=== PATIENT | female | born 1955 | race Caucasian/White ===

== ENCOUNTER 2017-10-28 12:44 | Emergency (ER) | payer OTHER ==
[2017-10-28 17:06] LABS: ADD MAN DIFF? NO
[2017-10-28] MEDS: morphine 4 MG/ML VIAL IV ×2 (17:06→18:19)
[2017-10-28 17:08] LABS: WHITE BLOOD COUNT 8.4 10^3/ul (4.8-10.8)
[2017-10-28 17:08] LABS: BASOPHIL # 0.1 10^3/ul (0.0-0.1); BASOPHILS % 0.6 % (0.0-2.0); EOSINOPHILS % 0.2 % (0.0-7.0); HEMATOCRIT 38.6 % (37.0-47.0); HEMOGLOBIN 13.5 g/dl (12.0-16.0); LYMPHOCYTES # 1.8 10^3/ul (0.8-2.9); LYMPHOCYTES % 21.6 % (15.0-51.0); MEAN CORPUSCULAR VOLUME 97.2 fl (82.0-101.0); MEAN PLATELET VOLUME 12.2 fl (7.4-10.4); MONOCYTE # 0.8 10^3/ul (0.3-0.9); MONOCYTES % 9.5 % (0.0-11.0); NEUTROPHIL # 5.7 10^3/ul (1.6-7.5); NEUTROPHILS % 67.9 % (39.0-77.0); PLATELET COUNT 111 10^3/UL (140-415); RED BLOOD COUNT 3.97 10^6/ul (4.20-5.40); RED CELL DISTRIBUTION WIDTH 17.2 % (11.5-14.5)
[2017-10-28 17:27] LABS: ALBUMIN/GLOBULIN RATIO 0.65; ANION GAP 15 (8-16)
[2017-10-28 17:31] LABS: ALANINE AMINOTRANSFERASE 49 IU/L (13-69); ALBUMIN 3.4 g/dl (3.3-4.9); ALKALINE PHOSPHATASE 291 IU/L (42-121); ASPARTATE AMINO TRANSFERASE 181 IU/L (15-46); BILIRUBIN,INDIRECT 2.4 mg/dl (0-1.1); BILIRUBIN,TOTAL 2.7 mg/dl (0.2-1.3); BLOOD UREA NITROGEN 7 mg/dl (7-20); CALCIUM 9.7 mg/dl (8.4-10.2); CARBON DIOXIDE 29 mmol/L (21-31); CHLORIDE 100 mmol/L (97-110); CREATININE 0.81 mg/dl (0.44-1.00); GLUCOSE 110 mg/dl (70-220); LIPASE 86 U/L (23-300); POTASSIUM 3.9 mmol/L (3.5-5.1); SODIUM 140 mmol/L (135-144); TOTAL PROTEIN 8.6 g/dl (6.1-8.1)
[2017-10-28 18:01] LABS: ADD UMIC YES; UR ASCORBIC ACID NEGATIVE (NEGATIVE); UR BACTERIA MODERATE /HPF (NONE SEEN); UR BILIRUBIN (Dip) 2+ mg/dL (NEGATIVE); UR BLOOD (Dip) NEGATIVE (NEGATIVE); UR CLARITY SLIGHTLY CLOUDY (CLEAR); UR COLOR AMBER (YELLOW); UR GLUCOSE (Dip) 1+ mg/dL (NEGATIVE); UR HYALINE CAST FEW /HPF (NONE SEEN); UR KETONES (Dip) TRACE mg/dL (NEGATIVE); UR LEUKOCYTE ESTERASE (Dip) TRACE Leu/ul (NEGATIVE); UR MUCUS MANY /HPF (NONE SEEN); UR NITRITE (Dip) POSITIVE (NEGATIVE); UR RBC 3 /HPF (0-5); UR SPECIFIC GRAVITY (Dip) 1.029 (1.003-1.030); UR SQUAMOUS EPITHELIAL CELL MANY /HPF (FEW); UR TOTAL PROTEIN (Dip) 2+ mg/dl (NEGATIVE); UR UROBILINOGEN (Dip) 2+ mg/dL (NEGATIVE); UR WBC 16 /HPF (0-5)
[2017-10-28 18:42] LABS: PROTIME 17.4 Sec (11.9-14.9); PT RATIO 1.4
[2017-10-28] MEDS: LIDOCAINE 1%/EPI 30 ML INJ INJ (18:51)
[2017-10-28] MEDS: HYDROmorphONE 0.5 MG/0.5 ML SYG IV (19:27)
[2017-10-28] MEDS: CEFTRIAXONE 1 GM/50 ML (PMX) 50 ML IVPB (19:27)
[2017-10-28 20:32] LABS: FLUID LD 119 U/L; FLUID TOTAL PROTEIN < 2.0 g/dl; FLUID TYPE FLUID
[2017-10-28 20:47] LABS: FLD MN% 78.9 %; FLD PMN% 21.1 %; FLD RBC 0 /uL; FLD WBC 128 /cmm
[2017-10-28 21:07] LABS: FLD TYPE ASCITES
[2017-10-28 21:08] LABS: FLD CLARITY CLEAR; FLD COLOR YELLOW
== END 2017-10-28 22:28 | disposition home or self-care (01) ==
LOC: FTE 12:44
DX: K70.31 Alcoholic cirrhosis of liver with ascites (principal); M25.461 Effusion, right knee
CPT/HCPCS: 71046; 74176; 76705; 80053; 81001; 83615; 83690; 84157; 85025; 85610; 85730; 87070; 87086; 89051; 96374; 96375; 96376; 99285-25

== ENCOUNTER 2017-10-30 09:47 | Emergency (ER) | payer OTHER ==
[2017-10-30 11:48] LABS: WHITE BLOOD COUNT 6.4 10^3/ul (4.8-10.8)
[2017-10-30 11:48] LABS: ABNORMAL IP MESSAGE 1; HEMATOCRIT 35.2 % (37.0-47.0); HEMOGLOBIN 12.5 g/dl (12.0-16.0); MEAN CORPUSCULAR HEMOGLOBIN 34.5 pg (29.0-33.0); MEAN CORPUSCULAR HGB CONC 35.5 g/dl (32.0-37.0); MEAN CORPUSCULAR VOLUME 97.2 fl (82.0-101.0); MEAN PLATELET VOLUME 12.9 fl (7.4-10.4); PLATELET COUNT 88 10^3/UL (140-415); RED BLOOD COUNT 3.62 10^6/ul (4.20-5.40); RED CELL DISTRIBUTION WIDTH 17.1 % (11.5-14.5)
[2017-10-30 12:00] LABS: ADD MAN DIFF? YES; POSITIVE DIFF @See below
[2017-10-30 12:05] LABS: INR 1.33; PROTIME 16.7 Sec (11.9-14.9); PT RATIO 1.3
[2017-10-30 12:09] LABS: ALANINE AMINOTRANSFERASE 43 IU/L (13-69); ALBUMIN 2.9 g/dl (3.3-4.9); ALBUMIN/GLOBULIN RATIO 0.65; ALKALINE PHOSPHATASE 233 IU/L (42-121); ANION GAP 17 (8-16); ASPARTATE AMINO TRANSFERASE 147 IU/L (15-46); BILIRUBIN,INDIRECT 1.6 mg/dl (0-1.1); BILIRUBIN,TOTAL 1.6 mg/dl (0.2-1.3); BLOOD UREA NITROGEN 5 mg/dl (7-20); CALCIUM 9.2 mg/dl (8.4-10.2); CARBON DIOXIDE 27 mmol/L (21-31); CHLORIDE 101 mmol/L (97-110); GLUCOSE 107 mg/dl (70-220); LIPASE 132 U/L (23-300); POTASSIUM 3.9 mmol/L (3.5-5.1); SODIUM 141 mmol/L (135-144); TOTAL PROTEIN 7.3 g/dl (6.1-8.1)
[2017-10-30 12:24] LABS: BAND NEUTROPHILS #M 0.2 10^3/ul (0.0-0.6); BAND NEUTROPHILS % (M) 4 % (0-4); EOSINOPHILS % (M) 1 % (0-7); LYMPHOCYTES #M 1.2 10^3/ul (0.8-2.9); LYMPHOCYTES % (M) 20 % (15-51); MONOCYTE #M 0.4 10^3/ul (0.3-0.9); MONOCYTES % (M) 7 % (0-11); PLATELET ESTIMATE DECREASED; SEG NEUT #M 4.4 10^3/ul (1.7-7.5); SEGMENTED NEUTROPHILS (M) % 68 % (39-77); SMUDGE%M 3 % (0-0)
[2017-10-30] MEDS: HYDROmorphONE 0.5 MG/0.5 ML SYG IV (12:44)
[2017-10-30] MEDS: LIDOCAINE 1% (MPF) 5 ML VIAL (13:43)
== END 2017-10-30 14:52 | disposition home or self-care (01) ==
LOC: E/R 09:47
DX: K70.31 Alcoholic cirrhosis of liver with ascites (principal); D69.6 Thrombocytopenia, unspecified; K83.1 Obstruction of bile duct
CPT/HCPCS: 36415; 80053; 83690; 85025; 85610; 96374; 99285-25

== ENCOUNTER 2017-11-04 10:53 | Emergency (ER) | payer OTHER ==
[2017-11-04] MEDS: morphine 4 MG/ML VIAL IV (14:35)
[2017-11-04] MEDS: ONDANSETRON 4 MG INJ IV ×2 (14:35→16:11)
[2017-11-04 15:20] LABS: ADD MAN DIFF? NO
[2017-11-04 15:26] LABS: BASOPHILS % 0.4 % (0.0-2.0); EOSINOPHILS % 0.2 % (0.0-7.0); HEMOGLOBIN 11.6 g/dl (12.0-16.0); LYMPHOCYTES # 1.5 10^3/ul (0.8-2.9); LYMPHOCYTES % 15.1 % (15.0-51.0); MEAN CORPUSCULAR HEMOGLOBIN 34.2 pg (29.0-33.0); MEAN CORPUSCULAR HGB CONC 35.2 g/dl (32.0-37.0); MEAN CORPUSCULAR VOLUME 97.3 fl (82.0-101.0); MEAN PLATELET VOLUME 12.8 fl (7.4-10.4); NEUTROPHIL # 7.1 10^3/ul (1.6-7.5); PLATELET COUNT 109 10^3/UL (140-415); RED BLOOD COUNT 3.39 10^6/ul (4.20-5.40)
[2017-11-04 15:26] LABS: WHITE BLOOD COUNT 9.6 10^3/ul (4.8-10.8)
[2017-11-04 15:41] LABS: ALANINE AMINOTRANSFERASE 47 IU/L (13-69); ALBUMIN 2.6 g/dl (3.3-4.9); ALKALINE PHOSPHATASE 227 IU/L (42-121); ANION GAP 12 (8-16); ASPARTATE AMINO TRANSFERASE 170 IU/L (15-46); BILIRUBIN,INDIRECT 1.1 mg/dl (0-1.1); BILIRUBIN,TOTAL 1.1 mg/dl (0.2-1.3); BLOOD UREA NITROGEN 5 mg/dl (7-20); CARBON DIOXIDE 28 mmol/L (21-31); CHLORIDE 97 mmol/L (97-110); GLUCOSE 168 mg/dl (70-220); POTASSIUM 3.1 mmol/L (3.5-5.1); SODIUM 134 mmol/L (135-144); TOTAL PROTEIN 6.9 g/dl (6.1-8.1)
[2017-11-04] MEDS: HYDROmorphONE 1 MG/ML SYG IV (16:11)
[2017-11-04] MEDS: IOHEXOL 300MG/ML 150 ML BTL (16:12)
[2017-11-04] MEDS: SOD CHLORIDE 0.9% 100 ML (16:12)
[2017-11-04] MEDS: POTASSIUM CHLORIDE (SR) 20 MEQ TAB PO (18:22)
== END 2017-11-04 18:31 | disposition home or self-care (01) ==
LOC: E/R 10:53
DX: K74.60 Unspecified cirrhosis of liver (principal)
CPT/HCPCS: 36415; 74177; 80053; 85025; 96374; 96375; 99285-25

== ENCOUNTER 2017-12-01 15:00 | Observation (INO) | payer OTHER ==
[2017-12-01 16:20] LABS: ADD MAN DIFF? NO
[2017-12-01 16:24] LABS: BASOPHIL # 0.1 10^3/ul (0.0-0.1); BASOPHILS % 0.6 % (0.0-2.0); EOSINOPHILS % 0.4 % (0.0-7.0); HEMATOCRIT 36.5 % (37.0-47.0); HEMOGLOBIN 12.4 g/dl (12.0-16.0); LYMPHOCYTES # 1.6 10^3/ul (0.8-2.9); LYMPHOCYTES % 19.8 % (15.0-51.0); MEAN CORPUSCULAR VOLUME 97.1 fl (82.0-101.0); MEAN PLATELET VOLUME 12.8 fl (7.4-10.4); MONOCYTE # 0.7 10^3/ul (0.3-0.9); MONOCYTES % 8.2 % (0.0-11.0); NEUTROPHIL # 5.8 10^3/ul (1.6-7.5); NEUTROPHILS % 70.8 % (39.0-77.0); PLATELET COUNT 141 10^3/UL (140-415); RED BLOOD COUNT 3.76 10^6/ul (4.20-5.40); RED CELL DISTRIBUTION WIDTH 14.8 % (11.5-14.5)
[2017-12-01 16:24] LABS: WHITE BLOOD COUNT 8.2 10^3/ul (4.8-10.8)
[2017-12-01 16:42] LABS: PROTIME 16.4 Sec (11.9-14.9); PT RATIO 1.3
[2017-12-01 16:44] LABS: ALANINE AMINOTRANSFERASE 35 IU/L (13-69); ALBUMIN 3.4 g/dl (3.3-4.9); ALBUMIN/GLOBULIN RATIO 0.72; ALKALINE PHOSPHATASE 174 IU/L (42-121); ANION GAP 16 (8-16); ASPARTATE AMINO TRANSFERASE 101 IU/L (15-46); BILIRUBIN,INDIRECT 1.8 mg/dl (0-1.1); BILIRUBIN,TOTAL 1.8 mg/dl (0.2-1.3); CARBON DIOXIDE 31 mmol/L (21-31); CHLORIDE 99 mmol/L (97-110); GLUCOSE 114 mg/dl (70-220); TOTAL PROTEIN 8.1 g/dl (6.1-8.1)
[2017-12-01 16:47] LABS: BLOOD UREA NITROGEN 10 mg/dl (7-20); CALCIUM 9.6 mg/dl (8.4-10.2); CREATININE 0.66 mg/dl (0.44-1.00); POTASSIUM 3.8 mmol/L (3.5-5.1); SODIUM 142 mmol/L (135-144)
[2017-12-01 16:48] LABS: PARTIAL THROMBOPLASTIN TIME 39.4 Sec (25.0-35.0)
[2017-12-01] MEDS ORDERED: FENTAnyl 50 MCG/ML VIAL (18:26)
[2017-12-01] MEDS ORDERED: MIDAZOLAM 1 MG/ML 2 ML INJ (18:26)
[2017-12-01] MEDS ORDERED: ROCURONIUM 50 MG INJ (19:10)
[2017-12-01] MEDS ORDERED: GLYCOPYRROLATE 0.4 MG INJ (19:10)
[2017-12-01] MEDS ORDERED: NEOSTIGMINE 3 MG/3 ML SYRINGE (19:10)
[2017-12-01] MEDS ORDERED: PROPOFOL 20 ML (19:10)
[2017-12-01] MEDS ORDERED: LIDOCAINE 2% (SDV) 5 ML INJ (19:10)
[2017-12-01] MEDS ORDERED: CEFAZOLIN 1 GM INJ (19:10)
[2017-12-01] MEDS ORDERED: ONDANSETRON 4 MG INJ (19:11)
[2017-12-01] MEDS ORDERED: ALBUTEROL 0.5% (NEB) 2.5 MG/0.5 ML AMP (19:26)
[2017-12-01] MEDS ORDERED: FENTAnyl 50 MCG/ML VIAL IV (19:30)
[2017-12-01] MEDS ORDERED: HYDROmorphONE (0.2 MG/ML) 10ML SYG IV ×2 (19:30)
[2017-12-01] MEDS ORDERED: ONDANSETRON 4 MG INJ IV (19:30)
[2017-12-01] MEDS ORDERED: MEPERIDINE 25 MG INJ IV (19:30)
[2017-12-01] MEDS: ALBUTEROL 0.083% (NEB) 2.5 MG/3 ML AMP HHN (19:49)
[2017-12-01] MEDS ORDERED: ACETAMINOPHEN 325 MG TAB PO (22:30)
[2017-12-01] MEDS ORDERED: ALBUTEROL/IPRATROPIUM (NEB) 3 ML AMP HHN (22:30)
[2017-12-01] MEDS ORDERED: ONDANSETRON INJ 8 MG in DEXTROSE 5% 50 ML IV (22:30)
[2017-12-01] MEDS: morphine 2 MG INJ IV (22:56)
[2017-12-02] MEDS ORDERED: ONDANSETRON 4 MG INJ IV (01:00)
[2017-12-02] MEDS ORDERED: CARISOPRODOL 350 MG TAB PO (07:00)
[2017-12-02] MEDS: PANTOPRAZOLE (EC) 40 MG TAB PO (07:02)
[2017-12-02 08:54] LABS: ADD MAN DIFF? NO
[2017-12-02] MEDS: PAROXETINE 20 MG TAB PO (09:15)
[2017-12-02 09:16] LABS: WHITE BLOOD COUNT 7.5 10^3/ul (4.8-10.8)
[2017-12-02 09:16] LABS: ABNORMAL IP MESSAGE 1; BASOPHILS % 0.4 % (0.0-2.0); EOSINOPHILS # 0.1 10^3/ul (0.0-0.5); EOSINOPHILS % 0.9 % (0.0-7.0); HEMATOCRIT 31.2 % (37.0-47.0); HEMOGLOBIN 10.5 g/dl (12.0-16.0); LYMPHOCYTES # 1.9 10^3/ul (0.8-2.9); LYMPHOCYTES % 25.9 % (15.0-51.0); MEAN CORPUSCULAR HEMOGLOBIN 32.9 pg (29.0-33.0); MEAN CORPUSCULAR HGB CONC 33.7 g/dl (32.0-37.0); MEAN CORPUSCULAR VOLUME 97.8 fl (82.0-101.0); MEAN PLATELET VOLUME 12.4 fl (7.4-10.4); MONOCYTE # 0.8 10^3/ul (0.3-0.9); MONOCYTES % 10.7 % (0.0-11.0); NEUTROPHIL # 4.6 10^3/ul (1.6-7.5); NEUTROPHILS % 61.8 % (39.0-77.0); PLATELET COUNT 97 10^3/UL (140-415); RED BLOOD COUNT 3.19 10^6/ul (4.20-5.40); RED CELL DISTRIBUTION WIDTH 14.8 % (11.5-14.5)
[2017-12-02 09:24] LABS: POSITIVE DIFF @See below
[2017-12-02 09:31] LABS: ALANINE AMINOTRANSFERASE 33 IU/L (13-69); ALBUMIN 2.5 g/dl (3.3-4.9); ALKALINE PHOSPHATASE 126 IU/L (42-121); ANION GAP 12 (8-16); ASPARTATE AMINO TRANSFERASE 76 IU/L (15-46); BILIRUBIN,INDIRECT 1.1 mg/dl (0-1.1); BILIRUBIN,TOTAL 1.1 mg/dl (0.2-1.3); BLOOD UREA NITROGEN 12 mg/dl (7-20); CALCIUM 9.2 mg/dl (8.4-10.2); CARBON DIOXIDE 32 mmol/L (21-31); CHLORIDE 101 mmol/L (97-110); GLUCOSE 104 mg/dl (70-220); LIPASE 303 U/L (23-300); POTASSIUM 3.9 mmol/L (3.5-5.1); SODIUM 141 mmol/L (135-144); TOTAL PROTEIN 6.6 g/dl (6.1-8.1)
[2017-12-02] MEDS: morphine 2 MG INJ IV (11:46)
[2017-12-02 13:52] LABS: AMYLASE 60 U/L (11-123)
== END 2017-12-02 16:15 | disposition home or self-care (01) ==
LOC: SDS 15:00 → MS1 21:20
DX: K83.9 Disease of biliary tract, unspecified (principal); I10 Essential (primary) hypertension; M19.90 Unspecified osteoarthritis, unspecified site
CPT/HCPCS: 43264; 71045; 73562; 74330; 80053; 82150; 83690; 85025; 85610; 85730; 88305; 93005